=== PATIENT | male | born 1950 | race Caucasian/White ===

== ENCOUNTER → 2020-05-12 | Outpatient (CLI) | payer MEDICARE, OTHER ==
[2020-05-12 11:43] LABS: BUN/CREATININE RATIO 19 (0-10)
[2020-05-12 11:45] LABS: HEMOGLOBIN 14.4 gm/dl (14.0-17.5); RED BLOOD COUNT 4.8 M/UL (4.20-5.50); WHITE BLOOD COUNT 6.4 K/UL (4.5-11.0)
== END ==
LOC: LAB 10:14
PROVIDERS: Nurse Practitioner Family
DX: E11.9 Type 2 diabetes mellitus without complications (principal); I10 Essential (primary) hypertension; Z12.5 Encounter for screening for malignant neoplasm of prostate
CPT/HCPCS: 36415; 80053; 80061; 83036; 85025

== ENCOUNTER → 2020-09-28 | Outpatient (CLI) | payer MEDICARE, OTHER | LOC: LAB 12:57 | DX: R97.20 Elevated prostate specific antigen [PSA] (principal) | CPT/HCPCS: 36415; 84153 ==

== ENCOUNTER → 2020-10-06 | Outpatient (CLI) | payer MEDICARE, OTHER | LOC: CT 09:45 | DX: R10.32 Left lower quadrant pain (principal); K57.30 Diverticulosis of large intestine without perforation or abscess without bleeding; K76.0 Fatty (change of) liver, not elsewhere classified; N28.1 Cyst of kidney, acquired | CPT/HCPCS: 36415; 82565; 84520; Q9967 ==

== ENCOUNTER → 2020-10-31 | Outpatient (CLI) | payer MEDICARE, OTHER | LOC: LAB 12:08 | DX: R93.5 Abnormal findings on diagnostic imaging of other abdominal regions, including retroperitoneum (principal) | CPT/HCPCS: 36415; 82565; 84520 ==

== ENCOUNTER → 2020-11-02 | Outpatient (CLI) | payer MEDICARE, OTHER | LOC: CT 13:48 | DX: R93.5 Abnormal findings on diagnostic imaging of other abdominal regions, including retroperitoneum (principal); I77.819 Aortic ectasia, unspecified site | CPT/HCPCS: 74175; Q9967 ==

== ENCOUNTER → 2021-04-23 | Outpatient (CLI) | payer MEDICARE, OTHER ==
[2021-04-23 11:58] LABS: HEMOGLOBIN 14.9 gm/dl (14.0-17.5); RED BLOOD COUNT 5.11 M/UL (4.20-5.50); WHITE BLOOD COUNT 7.4 K/UL (4.5-11.0)
[2021-04-23 12:19] LABS: BUN/CREATININE RATIO 18 (0-10)
== END ==
LOC: LAB 11:26
DX: R10.13 Epigastric pain (principal)
CPT/HCPCS: 36415; 80053; 83690; 85025

== ENCOUNTER → 2021-10-03 | Outpatient (CLI) | payer MEDICARE, OTHER | LOC: LAB 15:42 | DX: N40.1 Benign prostatic hyperplasia with lower urinary tract symptoms (principal); R35.1 Nocturia | CPT/HCPCS: 36415; 84153 ==